=== PATIENT | male | born 1990 | race Caucasian/White ===

== ENCOUNTER 2021-12-24 09:17 | Outpatient (CLI) | payer SELFPAY | END 2021-12-24 09:18 | disposition home or self-care (01) | LOC: LABBT 09:17 | PROVIDERS: ATTEND Neurological Surgery | DX: Z20.822 Contact with and (suspected) exposure to COVID-19 (principal) | CPT/HCPCS: U0003; U0005 ==

== ENCOUNTER 2021-12-25 11:21 | Day surgery (SDC) | payer OTHER ==
[2021-12-24 08:37] VITALS: BMI 26.4
[2021-12-25] MEDS ORDERED: Scopolamine 1.5 mg/72 hour Patch ONE (11:55)
[2021-12-25] MEDS ORDERED: EPINEPHrine 1 MG/ML AMP ONE (11:55)
[2021-12-25] MEDS ORDERED: Bupivacaine PF 0.5% 30 ML VIAL ONE (11:55)
[2021-12-25] MEDS ORDERED: Midazolam HCl 2 mg/2 ml Vial ONE (11:55)
[2021-12-25] MEDS ORDERED: Thrombin 5000 UNITS/5 ML VIAL ONE (11:55)
[2021-12-25] MEDS ORDERED: Meperidine HCl/PF 25 MG/ML VIAL ONE (12:03)
[2021-12-25] MEDS ORDERED: fentaNYL Citrate/PF 100 MCG/2 ML SYRINGE ONE (12:04)
[2021-12-25] MEDS ORDERED: Famotidine/PF 20 mg/2ml Vial ONE (12:04)
[2021-12-25] MEDS ORDERED: SUGAMMADEX SODIUM 200 MG/2 ML VIAL ONE (12:04)
[2021-12-25] MEDS ORDERED: CEFAZOLIN 2 GM VIAL ONE ×2 (12:07→15:03)
[2021-12-25] MEDS ORDERED: Sodium Chloride 0.9% 100 ML ONE ×2 (12:07→15:03)
[2021-12-25] MEDS ORDERED: Fentanyl 100 MCG/2 ML VIAL ONE (13:58)
[2021-12-25] MEDS ORDERED: HYDROcodone/Acetaminophen 5/325 mg Tablet ONE (15:55)
== END 2021-12-25 16:22 | disposition home or self-care (01) ==
LOC: SDC 11:21
PROVIDERS: ATTEND Neurological Surgery
DX: M51.17 Intervertebral disc disorders with radiculopathy, lumbosacral region (principal); M25.78 Osteophyte, vertebrae; F17.210 Nicotine dependence, cigarettes, uncomplicated
CPT/HCPCS: 76000; J0171; J0690; J2175; J2250; J3010; J3490; S0020; S0028